=== PATIENT | male | born 1980 | race Caucasian/White ===

== ENCOUNTER 2019-01-06 15:43 | Emergency (ER) | payer SELFPAY ==
[2019-01-06] MEDS ORDERED: Lidocaine 1% 5ml 10 MG/ML VIAL IJ ONE ×2 (15:50→15:56)
--- NOTE | 2019-01-06 15:53 | ED Physician Documentation ---
General Adult - HISTORIAN Historian: patient - HPI Chief Complaint: Laceration/Recheck/Suture (Left arm laceration) Additional Information: Patient is a 38-year-old male that presents to the ER with laceration to the left arm while using a band saw- bleeding is controlled. Patient has full sensation to arm, hand, fingers. Onset: minutes (30 MIN [employer]) Timing: still present Severity: moderate Modifying Factors: BAND SAW Location: LEFT FOREARM Further Comments: no - ROS CONST: no problems EYES/ENT: none CVS/RESP: none GI/: none MS/SKIN/LYMPH: other (LACERATION TO LEFT FOREARM) NEURO/PSYCH: denies: headache, dizziness - PAST HX Past History: none Other History: none Surgeries/Procedures: other (TONSILS, VASECTOMY) Immunizations: tetanus, UTD Allergies/Adverse Reactions: Allergies Allergy/AdvReac Type Severity Reaction Status Date / Time No Known Allergies Allergy Verified 01/06/19 16:11 Home Medications: Ambulatory Orders Medication Instructions Recorded Cephalexin [Keflex] 500 mg PO Q6 10 Days #40 capsule 01/06/19 - SOCIAL HX Smoking History: non-smoker Alcohol Use: rarely Drug Use: none - FAMILY HX Family History: No Procedures Wound Location: upper extremity (Left forearm) Wound's Depth, Shape: linear Wound Explored: foreign body removed (metal) Irrigated w/ Saline (ccs): 1,000 Betadine Prep?: Yes Anesthesia: 1% Lidocaine Volume of Anesthetic: 10 CC Wound Debrided: moderate (METAL SHAVINGS REMOVED) Wound Repaired With: sutures Suture Size/Type: 4:0 Number of Sutures: 8 Layer Closure?: No Sterile Dressing Applied?: Yes Progress - Progress Progress: WOUND WAS IRRIGATED WITH 1 LITER OF NORMAL SALINE- CLEANSED WITH CHLORHEXIDINE AND SITE PREPPED WITH BETADINE. EIGHT SUTURES PLACED- PT TOLERATED WELL. General Adult Physical Exam - PHYSICAL EXAM GENERAL APPEARANCE: no distress EENT: eye inspection normal, ENT inspection normal, pharynx normal NECK: normal inspection RESPIRATORY: no resp distress, breath sounds normal CVS: reg rate & rhythm, heart sounds normal, equal pulses ABDOMEN: soft BACK: normal inspection SKIN: warm/dry, other (LACERATION TO THE LEFT FOREARM) EXTREMITIES: normal range of motion NEURO: oriented X3, CN's nml as tested, motor nml, sensation nml, mood/affect nml, cognition normal Discharge Clincal Impression: Laceration of arm Referrals: Primary Doctor,No [Primary Care Provider] - 2 Days Additional Instructions: Cephalexin 500mg by mouth every 6 hours for 10 days Keep area clean, dry, and covered Apply antibiotic ointment to laceration If you notice any signs of infection- redness, drainage, or warmth return to ER Follow up with PCP in 10 days to have sutures removed Condition: Good Disposition: 01 HOME, SELF-CARE Decision to Admit: NO Decision Time: 16:20
[2019-01-06 16:31] VITALS: BP 132/78
== END 2019-01-06 16:24 | disposition home or self-care (01) ==
LOC: ED 15:43
DX: S51.822A Laceration with foreign body of left forearm, initial encounter (principal); W31.2XXA Contact with powered woodworking and forming machines, initial encounter; Y93.89 Activity, other specified; Y92.9 Unspecified place or not applicable
CPT/HCPCS: 12034; 99283